=== PATIENT | female | born 1990 | race Caucasian/White ===

== ENCOUNTER 2025-06-08 21:03 | Outpatient (REF) | payer OTHER, SELFPAY ==
--- OUTSIDE RECORDS SUMMARY | 2025-06-08 15:00 | XMS_ITS | Encounter Summary ---
Author Organization [facility] Address [address] [place] [address] Care Team Providers Care Blueprint Tracer Name Role Phone Unavailable Primary Care Provider Unavailabl e Reason for Visit * ReasonCommentsGynecologic Exam Encounter Details DateTypeDepartmentCare Team (Latest Contact Info)Iahqeizviot77/24/2025 3:00 PM ESTOffice Visit [facility] [address] [address] Bjorn Jara DO [address] [place], [facility]11 Well woman exam with routine gynecological exam Social History Tobacco UseTypesPacks/DayYears UsedDateSmoking Tobacco: NeverAlcohol UseStandard Drinks/WeekCommentsNever0 (1 standard drink = 0.6 oz pure alcohol)Caffeine intake: noneEducationAnswerDate RecordedWhat is the highest level of school you have completed or the highest degree you have received?Some college, no degree 4CommentsNoSex and Gender InformationValueDate RecordedSex Assigned at NebkhVjnqgp04/30/2024 8:42 AM ESTLegal TecPkphji04/15/2023 7:01 PM EDTGender LccpkxujZxngal03/30/2024 8:42 AM ESTSexual OrientationStraight 08/14/2023 8:42 AM ESTdocumented as of this encounter Last Filed Vital Signs Vital SignReadingTime TakenCommentsBlood Fagttvgw752/82/ 3:13 PM EST Pulse--Temperature--Respiratory Rate--Oxygen Saturation--Inhaled Oxygen Concentration--Esdepu725 kg (241 lb)06/08/2025 3:13 PM ESTHeight--Body Mass Index38.910 8:36 AM EDTdocumented in this encounter Progress Notes * Sepideh Henderson NP - 06/08/2025 3:00 PM EST Reason for Appointment: Patient ID: Divine Rush is a 35 y.o. female who presents for Gynecologic Exam Patient presents today for Annual Exam. MEDICATIONS Current Outpatient Medications Medication Instructions phentermine (ADIPEX-P) 37.5 mg, Oral, Daily before breakfast phentermine (ADIPEX-P) 37.5 mg, Oral, Daily before breakfast spironolactone (ALDACTONE) 12.5 mg, Oral, Daily ALLERGIES No Known Allergies PROBLEMS Active Ambulatory Problems Diagnosis Date Noted No Active Ambulatory Problems Resolved Ambulatory Problems Diagnosis Date Noted No Resolved Ambulatory Problems Past Medical History: Diagnosis Date Abnormal facial hair Acne Allergies Bloody stools Obesity (BMI 30-39.9) PCOS (polycystic ovarian syndrome) ([facility]) Weight loss due to medication Well woman exam HISTORY PAST MEDICAL HISTORY SOCIAL HISTORY Past Medical History: Diagnosis Date Abnormal facial hair Acne Allergies Bloody stools Obesity (BMI 30-39.9) PCOS (polycystic ovarian syndrome) ([facility]) Childbirth x3 Weight loss due to medication Well woman exam Social History Tobacco Use Smoking status: Never Smokeless tobacco: Not on file Substance Use Topics Alcohol use: Never Comment: Caffeine intake: none Drug use: Never FAMILY HISTORY Family History Problem Relation Name Age of Onset Allergies Mother Inflammatory bowel disease Mother Osteoarthritis Mother Depression Mother Drug abuse Father Drug abuse Sister Anxiety disorder Maternal Grandmother Depression Maternal Grandmother Seizures Maternal Grandmother Breast cancer Paternal Grandmother Diabetes Paternal Grandfather Stroke Paternal Grandfather Depression Mother's Sister Anxiety disorder Mother's Sister Diabetes Cousin SURGICAL HISTORY Past Surgical History: Procedure Laterality Date SECTION, LOW TRANSVERSE 2012,2014,2017 TUBAL LIGATION 2017 WISDOM TOOTH EXTRACTION REVIEW OF SYSTEMS Review of Systems: Review of Systems Constitutional: Negative. HENT: Negative. Eyes: Negative. Respiratory: Negative. Cardiovascular: Negative. Gastrointestinal: Negative. Genitourinary: Negative. Musculoskeletal: Negative. Skin: Negative. Neurological: Negative. All other systems reviewed and are negative. Hematological: Negative. Endocrine: Negative. Allergic/Immunologic: Negative. OBJECTIVE Objective: Physical Exam Constitutional: Appearance: Normal appearance. She is well-developed. Genitourinary: Vulva normal. Breasts: Breasts are soft. Right: Normal. Left: Normal. Cardiovascular: Rate and Rhythm: Normal rate and regular rhythm. Pulmonary: Effort: Pulmonary effort is normal. Breath sounds: Normal breath sounds. Abdominal: General: Bowel sounds are normal. There is no distension. Palpations: Abdomen is soft. Tenderness: There is no abdominal tenderness. There is no guarding or rebound. Musculoskeletal: General: No swelling. Normal range of motion. Right lower leg: No edema. Left lower leg: No edema. Neurological: Mental Status: She is alert and oriented to person, place, and time. Skin: General: Skin is warm and dry. Psychiatric: Mood and Affect: Mood normal. Behavior: Behavior normal. Vitals and nursing note reviewed. Exam conducted with a chief service observer present. Vitals: Estimated body mass index is 38.9 kg/m?? as calculated from the following: Height as of 04/16/25: 5' 6 . Weight as of this encounter: 241 lb. BP: 124/82 No LMP recorded. Assessment/Plan ICD-10-CM 1. Well woman exam with routine gynecological exam Z01.419 Pap Smear HPV DNA probe, amplified Assessment/Plan Annual Exam: Patient presents today for an annual exam. Patient states she is doing well and has no complaints. Pap was obtained without difficulty. Complaints of enlarged pendulous breast at the level of umbilicus, no movement with rasing arms above head. Complaints of back/ neck pain. Orders Placed This Encounter Procedures HPV DNA probe, amplified Follow Up: Patient is to return in one year for annual unless needed otherwise. Documented by Sepideh Henderson NP on behalf of: Bjorn Jara DO documented in this encounter Plan of Treatment DateTypeDepartmentCare Team (Latest Contact Info)Xygyydcrgmb31/23/2025 8:30 AM ESTOffice Visit [facility] [address] [place] [phone] Martha Rosales PA [address] [place] [address] 06/21/2026 8:30 AM ESTProcedure Visit [facility] [address] [place] [phone] Bjorn Jara DO [address] [place] [address] [place] [address] NameTypePriorityAssociated DiagnosesOrder SchedulePap SmearPathology and CytologyRoutine Well woman exam with routine gynecological exam Ordered: 06/08/2025HPV DNA probe, amplifiedMicrobiologyRoutine Well woman exam with routine gynecological exam Ordered: 06/08/2025documented as of this encounter Visit Diagnoses Diagnosis Well woman exam with routine gynecological exam Routine gynecological examination documented in this encounter
--- OUTSIDE RECORDS SUMMARY | 2025-06-08 21:08 | XMS_ITS | Clinical Summary ---
Author Organization [facility] Address [address] [place] [address] Care Team Providers Care Copyholder Name Role Phone Unavailable Primary Care Provider Unavailabl e Social History Tobacco UseTypesPacks/DayYears UsedDateSmoking Tobacco: Never Assessed CommentsUnknownSex and Gender InformationValueDate RecordedSex Assigned at Not on fileLegal PyuBcantc54/14/2022 2:52 PM EDTGender IdentityNot on fileSexual OrientationNot on file Plan of Treatment Health MaintenanceDue DateLast DoneCommentsHEPATITIS C VIRUS HJBOVOGYB1991 VVXJJYC21 1991HIV SCREENING XQLLJECPTG95/07/2006HEP B VACCINE (1 of 3 - 19+ 3-dose series)2010TDAP (ADULT)2010CERVICAL CANCER SCREENING VIFGFZUOXR26/07/2012HPV VACCINE (1 - 3-dose SCDM series)2018COVID-19 VACCINE (2024- season)2025INFLUENZA VACCINE (#1)2025 PNEUMOCOCCAL VACCINE SERIESAged OutNo longer eligible based on patient's age to complete this topic
--- OUTSIDE RECORDS SUMMARY | 2025-06-08 21:08 | XMS_ITS | Clinical Summary ---
Author Organization [facility] Address [address], [address] [place] [address] Care Team Providers Care Recreational Vehicle Resort Manager Name Role Phone Ridge Stahl MD Primary Care Provider Allergies No known active allergies Medications MedicationSigDispense QuantityRefillsLast FilledStart DateEnd DateStatus vitamin (-S) 27-0.8 MG TABS Indications:Supervision of other normal pregnancyTake 1 tablet by mouth daily. 30 tablet 8011/29/2012ctive ibuprofen (ADVIL;MOTRIN) 800 MG tablet Take 1 tablet by mouth every 8 hours as needed. 60 tablet ctive Active Problems No known active problems Resolved Problems ProblemNoted DateDiagnosed DateResolved DatePregnancy with one fetus07/07/2013 07/24/2013Inverted Immunizations ImmunizationAdministration DatesNext DueTDaP, ADACEL (age 10y-64y), BOOSTRIX (age 10y+), IM, 0.5mL07/09/2013 Family History Medical HistoryRelationNameCommentsAlcohol AbuseFatherArthritisMaternal GrandmotherArthritisMotherAnemiaOtherGGMArthritisOtherGGMDiabetesOtherGGMHeart DiseaseOtherGGMHeart SurgeryOtherGGMKidney DiseaseOtherGGMAlcohol AbusePaternal GrandmotherRelationNameStatusCommentsFatherAliveMaternal GrandmotherMotherAlive OtherGGMAlivePaternal GrandmotherAlive Social History Tobacco UseTypesPacks/DayYears UsedDateSmoking Tobacco: NeverAlcohol UseStandard Drinks/WeekCommentsNo0 (1 standard drink = 0.6 oz pure alcohol)Comments NoSex and Gender InformationValueDate RecordedSex Assigned at BirthNot on file Legal LliBrilve19/10/2013 3:17 PM ESTGender IdentityNot on fileSexual OrientationNot on file Last Filed Vital Signs Vital SignReadingTime TakenCommentsBlood Fjynrrck078/80008/26/2013 3:03 PM EST Qzvmw300507/10/2013 9:00 AM YRGLiyphviuzfv23.4 ??C (97.5 ??F)07/10/2013 9:00 AM ESTRespiratory Txpf819909/10/2012 9:00 AM ESTOxygen Itfkbdhvob72%07/08/2013 8:37 AM ESTInhaled Oxygen Concentration--Azjwzx60.2 kg (212 lb)08/26/2013 3:03 PM EST Nodjqs577.6 cm (5' 6 )08/26/2013 3:03 PM ESTBody Mass Index34.22008/26/2013 3:03 PM EST Plan of Treatment Not on file Advance Directives * Full Code (Latest Code Status on File) Date ActivatedDate BlrldzmcosfWsiomiix80/24/2013 7:54 AM07/10/2013 6:07 PM * Full Code Date ActivatedDate FvgxmhxntfaBkvpyrul49/24/2013 4:03 AM07/08/2013 7:54 AM * Full Code Date ActivatedDate SmpbakfvplxDyzpymzm06/22/2013 7:30 PM07/08/2013 4:03 AM Care Teams Team MemberRelationshipSpecialtyStart DateEnd Date Ridge Stahl MD [address] [place] [address] PCP - Bmyhxea96/19/13
--- OUTSIDE RECORDS SUMMARY | 2025-06-08 21:08 | XMS_ITS | Encounter Summary ---
Author Organization [facility] Address [address] [place] [address] Care Team Providers Care Auxiliary Engineer Name Role Phone Unavailable Primary Care Provider Unavailabl e Encounter Details DateTypeDepartmentCare Team (Latest Contact Info)Anoihreqory93/24/2025Bamboo flowsheet [facility] [address] [place] [address] Bjorn Jara, [address] [place] [address] Social History Tobacco UseTypesPacks/DayYears UsedDateSmoking Tobacco: NeverAlcohol UseStandard Drinks/WeekCommentsNever0 (1 standard drink = 0.6 oz pure alcohol)Caffeine intake: noneEducationAnswerDate RecordedWhat is the highest level of school you have completed or the highest degree you have received?Some college, no degree 4CommentsNoSex and Gender InformationValueDate RecordedSex Assigned at EoibtNmhccg41/30/2024 8:42 AM ESTLegal PwoKcvirk86/15/2023 7:01 PM EDTGender PgzefcmcMgqcwq72/30/2024 8:42 AM ESTSexual OrientationStraight 08/14/2023 8:42 AM ESTdocumented as of this encounter Plan of Treatment DateTypeDepartmentCare Team (Latest Contact Info)Lkbzizukgqh70/23/2025 8:30 AM ESTOffice Visit [facility] [address] [address] Martha Rosales PA [address] [place] [address] 06/21/2026 8:30 AM ESTProcedure Visit [facility] [address] [address] Bjorn Jara DO [address] [place] [address] documented as of this encounter Visit Diagnoses Not on filedocumented in this encounter
--- OUTSIDE RECORDS SUMMARY | 2025-06-08 21:08 | XMS_ITS | Clinical Summary ---
Author Organization [facility] Address [id number] [place] [address] Care Team Providers Care Senior Recruiter Name Role Phone Unavailable Primary Care Provider Unavailabl e Social History Tobacco UseTypesPacks/DayYears UsedDateSmoking Tobacco: Never AssessedChildcare AnswerDate OdtvbwpvEzqcbcogwUiffgpf47/12/2019EmploymentAnswerDate Recorded ErdmyoaqlmDmeysrb42/12/2019CommentsUnknownSex and Gender Information ValueDate RecordedSex Assigned at BirthNot on fileLegal ElhQxdjoc25/06/2015 12:03 PM EDTGender IdentityNot on fileSexual OrientationNot on file Plan of Treatment Not on file Medical Devices Not on file
--- OUTSIDE RECORDS SUMMARY | 2025-06-08 21:08 | XMS_ITS | Clinical Summary ---
Author Organization [facility] Address [address] [place] [address] Care Team Providers Care Export Traffic Department Manager Name Role Phone Unavailable Primary Care Provider Unavailabl e Allergies No known active allergies Medications MedicationSigDispense QuantityRefillsLast FilledStart DateEnd DateStatus phentermine (Adipex-P) 37.5 MG tablet Indications:Encounter for weight managementTake 1 tablet (37.5 mg) by mouth in the morning. Take before meals. 90 tablet 5Active phentermine (Adipex-P) 37.5 MG tablet Indications:Encounter for weight managementTake 1 tablet (37.5 mg) by mouth in the morning. Take before meals. 90 tablet 512/5Active spironolactone (Aldactone) 25 MG tablet Indications:Weight gainTake 0.5 tablets (12.5 mg) by mouth Daily 15 tablet 516Active Encounters DateTypeDepartmentCare XgvbNywxiexvmel71/24/2025 3:00 PM [place]Office [place] [address] Bjorn Jara DO Well woman exam with routine gynecological exam06/08/2025amboo flowsheet [facility] [address] [place] [address] Bjorn Jara DO 04/16/2025 8:30 AM EDTOff[place] [address] Sepideh Henderson, UNRULY Hirsutism (Primary Dx); Weight gain; Encounter for weight gurxwnthes39/02/2025Bamboo flowsheet [facility] [address] [place] [address] Sepideh Henderson NP from Last 3 Months Family History Medical HistoryRelationNameCommentsDiabetesCousinDrug abuseFatherAnxiety disorderMaternal GrandmotherDepressionMaternal GrandmotherSeizuresMaternal GrandmotherAllergiesMotherDepressionMotherInflammatory bowel diseaseMother OsteoarthritisMotherAnxiety disorderMother's SisterDepressionMother's Sister DiabetesPaternal GrandfatherStrokePaternal GrandfatherBreast cancerPaternal GrandmotherDrug abuseSisterRelationNameStatusCommentsCousinDaughterAliveFather AliveMaternal GrandmotherMotherAliveMother's SisterPaternal GrandfatherDeceased Paternal GrandmotherSisterSonAlive2 Social History Tobacco UseTypesPacks/DayYears UsedDateSmoking Tobacco: Never Tobacco Cessation:Counseling Given: Not Answered Alcohol UseStandard Drinks/WeekCommentsNever0 (1 standard drink = 0.6 oz pure alcohol)Caffeine intake: noneEducationAnswerDate RecordedWhat is the highest level of school you have completed or the highest degree you have received?Some college, no yqiapx0808/13/2023CommentsNoSex and Gender InformationValue Date RecordedSex Assigned at YnxwjJetfhh86/30/2024 8:42 AM ESTLegal SexFemale 09/27/2022 7:01 PM EDTGender EdumonjeJpyriz51/30/2024 8:42 AM ESTSexual KccdnxhrzrrXxkylglt78/30/2024 8:42 AM EST Last Filed Vital Signs Vital SignReadingTime TakenCommentsBlood Dxadygud228/8211 3:13 PM EST Pulse--Temperature--Respiratory Rate--Oxygen Saturation--Inhaled Oxygen Concentration--Hggvpa230 kg (241 lb)06/08/2025 3:13 PM KLZXdgabg370.6 cm (5' 6 ) 04/16/2025 8:36 AM EDTBody Mass Index38.91 8:36 AM EDT Plan of Treatment DateTypeDepartmentCare Team (Latest Contact Info)Taiksmbdmue40/23/2025 8:30 AM ESTOffice Visit [facility] [address] [place] [address] Martha Rosales PA [address] [place] [address] 06/21/2026 8:30 AM ESTProcedure Visit [facility] [address] [place] [address] Bjorn Jara DO [address] [place] [address] Health MaintenanceDue DateLast DoneCommentsPap Smear2012Cervical Cancer Dvycepgbo26/07/2021HPV/Xiyirs5605/22/2021OVID-19 Vaccine ( season) /02/2021, 04/01/2021Influenza Vaccine (#1)2025Pneumococcal Vaccine: Pediatrics (0 to 5 Years) and At-Risk Patients (6 to 64 Years)Aged Out No longer eligible based on patient's age to complete this [place] [address]
[2025-06-10 20:09] LABS: Age Gdln ACOG Testing Note (.); IGP, Aptima HPV, rfx 16/18,45 Note (.)
== END 2025-06-08 21:04 | disposition home or self-care (01) ==
LOC: LAB 21:03
PROVIDERS: Visit Provider Obstetrics & Gynecology
DX: Z01.419 Encounter for gynecological examination (general) (routine) without abnormal findings (principal)
CPT/HCPCS: 88175